=== PATIENT | female | born 1980 | race Caucasian/White ===

== ENCOUNTER 2021-09-05 12:17 | Emergency (ER) | payer OTHER ==
[~2021-09-05] VITALS: Ht 165.1 cm; Wt 68.0 kg
[~2021-09-05 12:17] MED LIST: AMIT50TA17 PO; CLON0.2T12 PO
[2021-09-05 13:02] LABS: HEMATOCRIT 36.9 % (31.2-41.9); MEAN CORPUSCULAR HEMOGLOBIN 24.7 uug (24.7-32.8); MEAN CORPUSCULAR VOLUME 75.8 fL (75.5-95.3); PLATELET COUNT (AUTO) 137 K/uL (179-408)
[2021-09-05 13:03] LABS: *BILIRUBIN,URIN NEGATIVE (NEGATIVE); *BLOOD, URINE NEGATIVE (NEGATIVE); *CLARITY,URINE CLEAR (CLEAR); *COLOR,URINE YELLOW (YELLOW); *KETONES,URINE NEGATIVE (NEGATIVE); *UROBILINOGEN,URINE 0.2 E.U./dl (NORMAL); LEUKOCYTE ESTERASE ,URINE NEGATIVE (NEGATIVE); NITRITE, URINE NEGATIVE (NEGATIVE); UGLUCOSE NEGATIVE (NEGATIVE)
[2021-09-05 13:05] LABS: CREATININE 0.7 mg/dL (0.6-1.3); POTASSIUM 3.7 mmol/L (3.5-5.1)
[2021-09-05 13:10] LABS: BILIRUBIN,DIRECT 0.2 mg/dL (0.0-0.2); BILIRUBIN,TOTAL 0.5 mg/dL (0.2-1.0); TOTAL PROTEIN, SERUM 7.3 g/dL (6.4-8.2)
[2021-09-05 13:11] LABS: *URINE HCG, QUAL NEG (NEGATIVE)
[2021-09-05] MEDS ORDERED: HYDROMORPHONE 1 MG/1 ML DISP.SYRIN IV ONE ×2 (13:15→14:00)
[2021-09-05] MEDS ORDERED: diphenhydrAMINE 50 MG/1 ML VIAL IV ONE (13:15)
--- NOTE | 2021-09-05 13:15 | NUR ---
Crista Cath to right subclavian area accessed with 19ga Triana needle per hospital protocol. Good blood return, able to flush without complications.
[2021-09-05] MEDS ORDERED: diphenhydrAMINE 50 MG/1 ML VIAL ONE (13:22)
[2021-09-05] MEDS ORDERED: HYDROMORPHONE 1 MG/1 ML DISP.SYRIN ONE ×2 (13:23→14:17)
[2021-09-05] MEDS ORDERED: IV NORMAL SALINE 500 ML BAG IV STA (13:27)
[2021-09-05] MEDS ORDERED: IV NORMAL SALINE 1000 ML BAG IV ONE (13:45)
--- NOTE | 2021-09-05 14:19 | NUR ---
2nd liter NS duplicate order
== END 2021-09-05 18:00 | disposition left against medical advice (07) ==
LOC: ER 12:22
DX: R10.9 Unspecified abdominal pain (principal); R10.13 Epigastric pain; B17.9 Acute viral hepatitis, unspecified; Z53.29 Procedure and treatment not carried out because of patient's decision for other reasons; Z20.822 Contact with and (suspected) exposure to COVID-19; Z90.49 Acquired absence of other specified parts of digestive tract; Z88.8 Allergy status to other drugs, medicaments and biological substances; Z91.018 Allergy to other foods; K50.90 Crohn's disease, unspecified, without complications
CPT/HCPCS: 36415; 74176; 76700; 80048; 80076; 81003; 83690; 84703; 85025; 87086; 87426; 96374; 96375; 96376; 99285; J1170 ×2; J1200; A4663; J7030

== ENCOUNTER 2022-03-15 19:54 | Emergency (ER) | payer OTHER ==
[~2022-03-15] VITALS: Ht 165.1 cm; Wt 63.5 kg
--- NOTE | 2022-03-15 21:02 | NUR ---
Patientis a/ox4, NAD noted, denies SOB. Patient is able to walk with steady gait.
--- NOTE | 2022-03-15 21:03 | NUR ---
Dr Em in room for [facility]
[2022-03-15] MEDS ORDERED: CEFTRIAXONE /D5W 50ML IVPB **ER PYXIS IV ONE (21:15)
[2022-03-15] MEDS ORDERED: diphenhydrAMINE 50 MG/1 ML VIAL ONE (21:15)
[2022-03-15] MEDS ORDERED: CEFTRIAXONE 1 G in IV DEXTROSE 5% 50 ML IV ONE (21:15)
[2022-03-15] MEDS ORDERED: VANCOMYCIN IV 200 ML ONE (21:15)
[2022-03-15] MEDS ORDERED: VANCOMYCIN IV 1,000 MG in IV DEXTROSE 5% 250 ML IV ONE (21:15)
[2022-03-15] MEDS ORDERED: diphenhydrAMINE 50 MG/1 ML VIAL IV ONE (21:15)
[2022-03-15] MEDS ORDERED: SULF1TAB48 PO (21:25)
[2022-03-15] MEDS ORDERED: CEPH500T PO (21:25)
[2022-03-15 21:47] LABS: HEMATOCRIT 37.6 % (31.2-41.9); MEAN CORPUSCULAR HEMOGLOBIN 27.7 uug (24.7-32.8); PLATELET COUNT (AUTO) 118 K/uL (179-408)
[2022-03-15 21:57] LABS: CREATININE 0.8 mg/dL (0.6-1.3); POTASSIUM 4.5 mmol/L (3.5-5.1)
[2022-03-15 22:03] LABS: BILIRUBIN,DIRECT 0.1 mg/dL (0.0-0.2); BILIRUBIN,TOTAL 0.2 mg/dL (0.2-1.0); TOTAL PROTEIN, SERUM 7.4 g/dL (6.4-8.2)
[2022-03-15] MEDS ORDERED: HYDROMORPHONE 1 MG/1 ML DISP.SYRIN IV ONE (22:30)
[2022-03-15] MEDS ORDERED: HYDROMORPHONE 1 MG/1 ML DISP.SYRIN ONE (22:44)
--- NOTE | 2022-03-15 23:47 | NUR ---
Patient discharged to home in stable condition. Written and verbal after care instructions given. Patient verbalizes understanding of instructions. Stressed follow up or return to ER for worsening s/s. Patients is a/ox4, NAD noted. Patient is able to walk with steady gait.
[2022-03-15 23:48] VITALS: BP 119/79
== END 2022-03-15 23:49 | disposition home or self-care (01) ==
LOC: ER 20:16
DX: L03.311 Cellulitis of abdominal wall (principal); K50.90 Crohn's disease, unspecified, without complications; Z90.49 Acquired absence of other specified parts of digestive tract; Z90.710 Acquired absence of both cervix and uterus; R11.0 Nausea; G89.29 Other chronic pain
CPT/HCPCS: 36415; 80048; 80076; 83690; 85025; 87040 ×2; 96365; 96366; 96367; 96375; 99284; J0696; J1170; J1200; J3370; A4663

== ENCOUNTER 2022-03-30 23:55 | Emergency (ER) | payer OTHER ==
[~2022-03-30] VITALS: Ht 165.1 cm; Wt 65.8 kg
[~2022-03-30 23:55] MED LIST changes: +CEPH500T PO; +SULF1TAB48 PO
--- NOTE | 2022-03-31 00:53 | NUR ---
Dr Em at bedside, MSE in progress.
[2022-03-31] MEDS ORDERED: IBUPROFEN 800 MG TABLET PO ONE (01:00)
[2022-03-31] MEDS ORDERED: CYCLOBENZAPRINE HCL 10 MG TABLET PO ONE (01:00)
[2022-03-31] MEDS ORDERED: IBUPROFEN 800 MG TABLET ONE (01:02)
[2022-03-31] MEDS ORDERED: CYCLOBENZAPRINE HCL 10 MG TABLET ONE (01:03)
[2022-03-31] MEDS ORDERED: IBUP-1955 PO (01:52)
[2022-03-31] MEDS ORDERED: CYCL10TA9 PO (01:53)
[2022-03-31 02:16] VITALS: BP 124/76
--- NOTE | 2022-03-31 02:16 | NUR ---
Patient discharged to home in stable condition. Written and verbal after care instructions given. Patient verbalizes understanding of instructions. Stressed follow up or return to ER for worsening s/s. pt ambulated with steady gait. AOx4. Thumb spica applied to left arm
== END 2022-03-31 02:17 | disposition home or self-care (01) ==
LOC: ER 23:57
DX: M79.642 Pain in left hand (principal); M25.512 Pain in left shoulder; K50.90 Crohn's disease, unspecified, without complications; Z90.49 Acquired absence of other specified parts of digestive tract
CPT/HCPCS: 73030; 73130; A4663

== ENCOUNTER 2022-09-25 21:57 | Emergency (ER) | payer OTHER ==
[~2022-09-25] VITALS: Ht 165.1 cm; Wt 65.8 kg
[~2022-09-25 21:57] MED LIST changes: +CYCL10TA9 PO; +IBUP-1955 PO
[2022-09-25] MEDS ORDERED: SULF1TAB48 PO (23:54)
[2022-09-25] MEDS ORDERED: CEPH500T PO (23:54)
[2022-09-25] MEDS ORDERED: CEFTRIAXONE 1 G VIAL ONE (23:56)
[2022-09-25] MEDS ORDERED: LIDOCAINE HCL 2% 20 ML VIAL ONE (23:56)
[2022-09-25] MEDS ORDERED: SULFAMETH/TRIMETH 800/160 MG TABLET ONE (23:57)
[2022-09-26] MEDS ORDERED: CEFTRIAXONE 1 G VIAL IM ONE
[2022-09-26] MEDS ORDERED: LIDOCAINE HCL 1% 20 ML VIAL ONE (00:02)
[2022-09-26] MEDS: SULFAMETH/TRIMETH 800/160 MG TABLET PO ONE ×2 (00:10→00:32)
--- NOTE | 2022-09-26 00:26 | NUR ---
Patient discharged to home in stable condition. Written and verbal after care instructions given. Patient verbalizes understanding of instructions. Stressed follow up or return to ER for worsening s/s. Patient walked out wiht steady gait.
[2022-09-26 00:37] VITALS: BP 119/79
== END 2022-09-26 00:27 | disposition home or self-care (01) ==
LOC: ER 21:57
DX: L03.115 Cellulitis of right lower limb (principal); Z90.49 Acquired absence of other specified parts of digestive tract; Z90.710 Acquired absence of both cervix and uterus; K50.90 Crohn's disease, unspecified, without complications; Z88.8 Allergy status to other drugs, medicaments and biological substances; Z91.018 Allergy to other foods
CPT/HCPCS: 99283; 96372; J0696; J3490; A4663

== ENCOUNTER 2022-09-29 16:56 | Emergency (ER) | payer OTHER ==
[~2022-09-29] VITALS: Ht 165.1 cm; Wt 65.8 kg
== END 2022-09-29 18:28 | disposition left against medical advice (07) ==
LOC: ER 16:59
DX: Z53.21 Procedure and treatment not carried out due to patient leaving prior to being seen by health care provider (principal)

== ENCOUNTER 2023-02-05 16:57 | Emergency (ER) | payer OTHER ==
[~2023-02-05] VITALS: Ht 165.1 cm; Wt 59.9 kg
[2023-02-05] MEDS ORDERED: PIPERACILLIN SODIUM/TAZOBACTAM 3.375 G in IV DEXTROSE 5% 50 ML IV ONE (17:45)
[2023-02-05] MEDS ORDERED: VANCOMYCIN IV 1,000 MG in IV DEXTROSE 5% 250 ML IV ONE (17:45)
[2023-02-05] MEDS ORDERED: HYDROMORPHONE 1 MG/1 ML DISP.SYRIN IV ONE ×3 (17:45→23:30)
[2023-02-05] MEDS ORDERED: ONDANSETRON 4 MG/2 ML VIAL IV ONE (17:45)
[2023-02-05] MEDS ORDERED: IV NORMAL SALINE 1000 ML BAG IV ONE (17:45)
--- NOTE | 2023-02-05 18:05 | NUR ---
Attempted to access pt's port a cath, unable to and pt c/o pain at the site. DR Em notified.
[2023-02-05] MEDS ORDERED: IV NORMAL SALINE 250 ML IV ONE (18:28)
[2023-02-05] MEDS ORDERED: IOHEXOL 300MG/ML 100 ML INFUS..BTL ONE (18:28)
[2023-02-05] MEDS ORDERED: SWABABLE VALVE TRANSFER SET EA MC ONE (18:28)
[2023-02-05] MEDS ORDERED: ONDANSETRON 4 MG/2 ML VIAL ONE (19:29)
[2023-02-05] MEDS ORDERED: HYDROMORPHONE 1 MG/1 ML DISP.SYRIN ONE ×2 (19:29→20:49)
[2023-02-05] MEDS ORDERED: PIPERACILLIN/TAZOBACTAM/D5W 50 ML IV ONE (19:29)
[2023-02-05 19:49] LABS: HEMATOCRIT 34.1 % (31.2-41.9); MEAN CORPUSCULAR HEMOGLOBIN 22.8 uug (24.7-32.8); PLATELET COUNT (AUTO) 207 K/uL (179-408)
[2023-02-05] MEDS ORDERED: diphenhydrAMINE 50 MG/1 ML VIAL IV ONE (20:00)
[2023-02-05 20:07] LABS: CARBON DIOXIDE 24 mmol/L (21-32); CHLORIDE 98 mmol/L (98-107); CREATININE 0.6 mg/dL (0.6-1.3); POTASSIUM 3.8 mmol/L (3.5-5.1); UREA NITROGEN, BLOOD 18 mg/dL (7-18)
[2023-02-05 20:09] LABS: GLUCOSE 318 mg/dL (74-106)
[2023-02-05 20:15] LABS: ALANINE AMINOTRANSFERASE 26 U/L (14-59); ALKALINE PHOSPHATASE 139 U/L (50-136); ASPARTATE AMINOTRANSFERASE 11 U/L (15-37); BILIRUBIN,DIRECT 0.1 mg/dL (0.0-0.2); BILIRUBIN,TOTAL 0.2 mg/dL (0.2-1.0); TOTAL PROTEIN, SERUM 7.4 g/dL (6.4-8.2)
[2023-02-05] MEDS ORDERED: VANCOMYCIN IV 200 ML ONE (20:48)
[2023-02-05] MEDS ORDERED: diphenhydrAMINE 50 MG/1 ML VIAL ONE (20:49)
--- NOTE | 2023-02-05 23:06 | NUR ---
[facility]ran[facility] called- spoke to Danisha Han and stated that patient will arrive at ER when transferred. was given call back number for report .
--- NOTE | 2023-02-05 23:39 | NUR ---
Called [facility] for transport. Stated that ETA is 45 min.
[2023-02-06] MEDS ORDERED: HYDROMORPHONE 1 MG/1 ML DISP.SYRIN ONE (00:15)
--- NOTE | 2023-02-06 00:35 | NUR ---
[facility] unit [id number] arrived to picker and packer patient.
--- NOTE | 2023-02-06 00:35 | NUR ---
Called [facility] and gave report to Esperanza MICHELLE.
[2023-02-06] MEDS ORDERED: diphenhydrAMINE 50 MG/1 ML VIAL IV ONE (00:45)
[2023-02-06] MEDS ORDERED: diphenhydrAMINE 50 MG/1 ML VIAL ONE (00:45)
== END 2023-02-06 01:25 | disposition short-term general hospital (02) ==
LOC: ER 17:00
DX: N76.4 Abscess of vulva (principal); N76.2 Acute vulvitis; R00.0 Tachycardia, unspecified; Z90.710 Acquired absence of both cervix and uterus; Z79.899 Other long term (current) drug therapy; Z79.2 Long term (current) use of antibiotics; Z88.8 Allergy status to other drugs, medicaments and biological substances; Z20.822 Contact with and (suspected) exposure to COVID-19
CPT/HCPCS: 36415; 71045; 83605; 84484; 85025; 85730; 87040; 93005; A4663; J1170; J1200; J2405; J2543; J3370; J7040; Q9967

== ENCOUNTER 2023-05-29 20:09 | Inpatient (IN) | payer OTHER ==
[~2023-05-29] VITALS: Ht 165.1 cm; Wt 73.5 kg
[~2023-05-29 20:09] MED LIST changes: +HYDR-3980 PO; +LIDO30AD10 TP
[2023-05-29] MEDS ORDERED: MORPHINE SULFATE 2 MG/1 ML DISP.SYRIN IV ONE (21:15)
[2023-05-29] MEDS ORDERED: IV NORMAL SALINE 1000 ML BAG IV ONE (21:15)
[2023-05-29] MEDS ORDERED: MORPHINE SULFATE 2 MG/1 ML DISP.SYRIN ONE ×2 (21:23→23:28)
[2023-05-29] MEDS ORDERED: diphenhydrAMINE 50 MG/1 ML VIAL ONE (21:27)
[2023-05-29] MEDS ORDERED: diphenhydrAMINE 50 MG/1 ML VIAL IV ONE (21:30)
[2023-05-29 21:53] LABS: LYMPHOCYTES # (AUTO) 0.9 K/uL (0.8-4.8); MONOCYTES # (AUTO) 0.3 K/uL (0.1-1.30)
[2023-05-29 21:55] LABS: BASOPHILS % (AUTO) 0.4 % (0.0-2.0); EOSINOPHILS % (AUTO) 0.5 % (0.0-7.0); LYMPHOCYTES % (AUTO) 17.6 % (20.5-51.5); MEAN CORPUSCULAR HEMOGLOBIN 19.6 uug (24.7-32.8); MEAN CORPUSCULAR HGB CONC 30 g/dL (32.3-35.6); MEAN CORPUSCULAR VOLUME 66.1 fL (75.5-95.3); NEUTROPHILS % (AUTO) 75.5 % (38.5-71.5); PLATELET COUNT (AUTO) 126 K/uL (179-408); RED BLOOD CELL COUNT(AUTO) 2.66 MIL/uL (3.63-4.92); RED CELL DISTRIBUTION WIDTH 17.6 % (12.3-17.7); WHITE BLOOD COUNT (AUTO) 5.3 K/uL (3.8-11.8)
[2023-05-29 22:00] LABS: HEMOGLOBIN 5.2 g/dL (10.9-14.3)
[2023-05-29 22:01] LABS: DIFFERENTIAL COMMENT 1; HEMATOCRIT 17.5 % (31.2-41.9)
[2023-05-29 22:10] LABS: ALANINE AMINOTRANSFERASE 35 U/L (14-59); ALBUMIN 2.8 g/dL (3.4-5.0); ALKALINE PHOSPHATASE 150 U/L (50-136); ASPARTATE AMINOTRANSFERASE 18 U/L (15-37); BILIRUBIN,DIRECT 0.1 mg/dL (0.0-0.2); BILIRUBIN,TOTAL 0.3 mg/dL (0.2-1.0); CALCIUM 7.5 mg/dL (8.5-10.1); CARBON DIOXIDE 21 mmol/L (21-32); CHLORIDE 100 mmol/L (98-107); CREATININE 0.6 mg/dL (0.6-1.3); GLUCOSE 369 mg/dL (74-106); POTASSIUM 3.9 mmol/L (3.5-5.1); SODIUM SERUM 132 mmol/L (136-145); TOTAL PROTEIN, SERUM 6.3 g/dL (6.4-8.2); UREA NITROGEN, BLOOD 13 mg/dL (7-18)
[2023-05-29 22:37] LABS: BASOPHILS % (AUTO) 0.9 % (0.0-2.0); EOSINOPHILS % (AUTO) 0.2 % (0.0-7.0); LYMPHOCYTES # (AUTO) 0.8 K/uL (0.8-4.8); LYMPHOCYTES % (AUTO) 18.7 % (20.5-51.5); MEAN CORPUSCULAR HEMOGLOBIN 19.4 uug (24.7-32.8); MEAN CORPUSCULAR HGB CONC 29 g/dL (32.3-35.6); MEAN CORPUSCULAR VOLUME 66.8 fL (75.5-95.3); MONOCYTES # (AUTO) 0.2 K/uL (0.1-1.30); MONOCYTES % (AUTO) 5.4 % (0.0-11.0); NEUTROPHILS # (AUTO) 3.3 K/uL (1.8-8.9); NEUTROPHILS % (AUTO) 74.8 % (38.5-71.5); PLATELET COUNT (AUTO) 129 K/uL (179-408); RED BLOOD CELL COUNT(AUTO) 2.55 MIL/uL (3.63-4.92); RED CELL DISTRIBUTION WIDTH 17.7 % (12.3-17.7); WHITE BLOOD COUNT (AUTO) 4.4 K/uL (3.8-11.8)
[2023-05-29 22:51] LABS: LIPASE 134 U/L (73-393)
[2023-05-29 23:21] LABS: DIFFERENTIAL COMMENT 1; HEMOGLOBIN 4.9 g/dL (10.9-14.3)
[2023-05-30] MEDS ORDERED: MORPHINE SULFATE 4 MG/1 ML DISP.SYRIN IV ONE (00:15)
[2023-05-30] MEDS ORDERED: MORPHINE SULFATE 2 MG/1 ML DISP.SYRIN IV ONE (00:15)
[2023-05-30] MEDS ORDERED: MORPHINE SULFATE 2 MG/1 ML DISP.SYRIN ONE (00:23)
[2023-05-30] MEDS ORDERED: HYDROMORPHONE 2 MG/1 ML DISP.SYRIN ONE (02:47)
[2023-05-30] MEDS ORDERED: diphenhydrAMINE 50 MG/1 ML VIAL ONE ×3 (03:01→09:58)
[2023-05-30] MEDS ORDERED: HYDROMORPHONE 1 MG/1 ML DISP.SYRIN IV ONE ×3 (03:15→10:00)
[2023-05-30] MEDS ORDERED: diphenhydrAMINE 50 MG/1 ML VIAL IV ONE ×3 (03:15→10:00)
[2023-05-30] MEDS ORDERED: HYDROMORPHONE 1 MG/1 ML DISP.SYRIN ONE ×2 (06:29→09:58)
[2023-05-30 11:30] VITALS: BP 143/82; TEMP 98.4; O2SAT 99
[2023-05-30] MEDS: HYDROMORPHONE 1 MG/1 ML DISP.SYRIN IV PRN ×3 (14:19→22:10)
[2023-05-30] MEDS: diphenhydrAMINE 50 MG/1 ML VIAL IV PRN ×2 (14:19→18:14)
[2023-05-30] MEDS ORDERED: ONDANSETRON 4 MG/2 ML VIAL IV PRN (14:45)
[2023-05-30] MEDS ORDERED: ACETAMINOPHEN 325 MG TABLET PO PRN (14:45)
[2023-05-30] MEDS ORDERED: AMIT25TA9 PO (14:46)
[2023-05-30 14:54] LABS: IRON, SERUM 8 ug/dL (50-175)
[2023-05-30] MEDS ORDERED: DOXY100C5 PO (15:12)
[2023-05-30] MEDS ORDERED: PANT40TA2 PO (15:12)
[2023-05-30] MEDS: PANTOPRAZOLE SODIUM 40 MG VIAL IV SCH (15:46)
[2023-05-30] MEDS ORDERED: INSU100V7 SQ (15:51)
[2023-05-30 16:00] VITALS: BP 133/75; TEMP 98.6; O2SAT 99
[2023-05-30 19:49] LABS: BASOPHILS % (AUTO) 0.5 % (0.0-2.0); EOSINOPHILS % (AUTO) 0.3 % (0.0-7.0); LYMPHOCYTES # (AUTO) 0.8 K/uL (0.8-4.8); LYMPHOCYTES % (AUTO) 19.7 % (20.5-51.5); MEAN CORPUSCULAR HEMOGLOBIN 20.2 uug (24.7-32.8); MEAN CORPUSCULAR HGB CONC 29 g/dL (32.3-35.6); MONOCYTES # (AUTO) 0.3 K/uL (0.1-1.30); MONOCYTES % (AUTO) 6.8 % (0.0-11.0); NEUTROPHILS % (AUTO) 72.7 % (38.5-71.5); PLATELET COUNT (AUTO) 116 K/uL (179-408); RED BLOOD CELL COUNT(AUTO) 2.87 MIL/uL (3.63-4.92); RED CELL DISTRIBUTION WIDTH 18.8 % (12.3-17.7); WHITE BLOOD COUNT (AUTO) 4.2 K/uL (3.8-11.8)
[2023-05-30 20:00] VITALS: BP 101/70; TEMP 98.3; O2SAT 94
[2023-05-30 20:15] LABS: DIFFERENTIAL COMMENT 1; HEMATOCRIT 19.8 % (31.2-41.9); HEMOGLOBIN 5.8 g/dL (10.9-14.3)
[2023-05-30] MEDS ORDERED: DEXTROSE 50% 50 ML DISP.SYRIN IV PRN (21:45)
[2023-05-30] MEDS: BLOOD SUGAR DIAGNOSTIC 1 EACH STRIP VI SCH (22:19)
[2023-05-30] MEDS: INSULIN GLARGINE,HUM 300 UNITS/3 ML CARTRIDGE SQ SCH (22:20)
[2023-05-30] MEDS: INSULIN REGULAR, HUMAN 300 UNIT/3 ML VIAL SQ PRN (22:25)
[2023-05-31] VITALS (7 sets, daily range): BP systolic 121–148; BP diastolic 74–85; TEMP 98.4–98.9; O2SAT 96–100
[2023-05-31] MEDS: TEMAZEPAM 15 MG CAPSULE PO PRN (00:33)
[2023-05-31] MEDS: diphenhydrAMINE 50 MG/1 ML VIAL IV PRN ×4 (00:33→20:10)
[2023-05-31] MEDS: HYDROMORPHONE 1 MG/1 ML DISP.SYRIN IV PRN ×5 (03:02→23:27)
[2023-05-31] MEDS: BLOOD SUGAR DIAGNOSTIC 1 EACH STRIP VI SCH ×4 (07:07→20:19)
[2023-05-31] MEDS ORDERED: diphenhydrAMINE 50 MG/1 ML VIAL IV STA (07:13)
[2023-05-31] MEDS: PANTOPRAZOLE SODIUM 40 MG VIAL IV SCH (10:53)
[2023-05-31 12:49] LABS: ALANINE AMINOTRANSFERASE 52 U/L (14-59); ALBUMIN 2.5 g/dL (3.4-5.0); ALKALINE PHOSPHATASE 194 U/L (50-136); ASPARTATE AMINOTRANSFERASE 24 U/L (15-37); BILIRUBIN,TOTAL 0.6 mg/dL (0.2-1.0); CALCIUM 7.4 mg/dL (8.5-10.1); CARBON DIOXIDE 25 mmol/L (21-32); CHLORIDE 102 mmol/L (98-107); CHOLESTEROL 73 mg/dL (<200); CREATININE 0.4 mg/dL (0.6-1.3); GLUCOSE 131 mg/dL (74-106); HDL CHOLESTEROL 37 mg/dL (40-60); MAGNESIUM 1.7 mg/dL (1.8-2.4); PHOSPHOROUS 2.5 mg/dL (2.5-4.9); POTASSIUM 3.2 mmol/L (3.5-5.1); SODIUM SERUM 136 mmol/L (136-145); TOTAL PROTEIN, SERUM 5.8 g/dL (6.4-8.2); TRIGLYCERIDES 58 MG/DL (30-150); UREA NITROGEN, BLOOD 9 mg/dL (7-18)
[2023-05-31 12:50] LABS: LIPASE < 10 U/L (73-393)
[2023-05-31 12:51] LABS: BASOPHILS % (AUTO) 0.6 % (0.0-2.0); DIFFERENTIAL COMMENT 0; HEMATOCRIT 23.1 % (31.2-41.9); MEAN CORPUSCULAR HEMOGLOBIN 21.1 uug (24.7-32.8); MEAN CORPUSCULAR HGB CONC 30 g/dL (32.3-35.6); MONOCYTES # (AUTO) 0.3 K/uL (0.1-1.30); MONOCYTES % (AUTO) 7.5 % (0.0-11.0); NEUTROPHILS # (AUTO) 2.9 K/uL (1.8-8.9); NEUTROPHILS % (AUTO) 66.9 % (38.5-71.5); PLATELET COUNT (AUTO) 136 K/uL (179-408); WHITE BLOOD COUNT (AUTO) 4.3 K/uL (3.8-11.8)
[2023-05-31 13:03] LABS: HEMOGLOBIN 6.9 g/dL (10.9-14.3)
[2023-05-31 13:14] LABS: C-REACTIVE PROTEIN 3.1 mg/dL (0.0-0.9)
[2023-05-31 13:46] LABS: THYROID STIMULATING HORMONE 0.098 mIU/mL (0.358-3.740)
[2023-05-31] MEDS ORDERED: FUROSEMIDE 20 MG/2 ML VIAL IV PRN (14:00)
[2023-05-31] MEDS ORDERED: POTASSIUM CHLORIDE 20 MEQ TAB.PRT.SR PO ONE (14:00)
[2023-05-31] MEDS ORDERED: MAGNESIUM SULFATE/D5W 100 ML IV SCH (14:00)
[2023-05-31 14:12] LABS: ERYTHROCYTE SEDIMENTATION RATE 20 MM/HR (0-20)
[2023-05-31] MEDS: POTASSIUM CHLORIDE 50 ML IV SCH ×2 (16:21→18:05)
[2023-05-31] MEDS: INSULIN GLARGINE,HUM 300 UNITS/3 ML CARTRIDGE SQ SCH (20:21)
[2023-05-31] MEDS: INSULIN REGULAR, HUMAN 300 UNITS/3 ML VIAL SQ PRN (20:22)
[2023-06-01] VITALS (8 sets, daily range): BP systolic 129–139; BP diastolic 73–87; TEMP 97.5–98.7; O2SAT 96–100
[2023-06-01] MEDS: diphenhydrAMINE 50 MG/1 ML VIAL IV PRN ×3 (02:31→21:47)
[2023-06-01] MEDS: HYDROMORPHONE 1 MG/1 ML DISP.SYRIN IV PRN ×6 (02:32→21:47)
[2023-06-01] MEDS: BLOOD SUGAR DIAGNOSTIC 1 EACH STRIP VI SCH ×4 (06:51→20:40)
[2023-06-01] MEDS: PANTOPRAZOLE SODIUM 40 MG VIAL IV SCH (08:36)
[2023-06-01 11:08] LABS: BASOPHILS % (AUTO) 0.7 % (0.0-2.0); EOSINOPHILS # (AUTO) 0.1 K/uL (0.0-0.7); EOSINOPHILS % (AUTO) 2.7 % (0.0-7.0); HEMATOCRIT 26.9 % (31.2-41.9); HEMOGLOBIN 8.2 g/dL (10.9-14.3); LYMPHOCYTES % (AUTO) 26.3 % (20.5-51.5); MEAN CORPUSCULAR HEMOGLOBIN 21.7 uug (24.7-32.8); MEAN CORPUSCULAR HGB CONC 30 g/dL (32.3-35.6); MEAN CORPUSCULAR VOLUME 71.1 fL (75.5-95.3); MONOCYTES # (AUTO) 0.3 K/uL (0.1-1.30); MONOCYTES % (AUTO) 7.4 % (0.0-11.0); NEUTROPHILS # (AUTO) 2.5 K/uL (1.8-8.9); NEUTROPHILS % (AUTO) 62.9 % (38.5-71.5); PLATELET COUNT (AUTO) 114 K/uL (179-408); RED BLOOD CELL COUNT(AUTO) 3.78 MIL/uL (3.63-4.92)
[2023-06-01 11:10] LABS: DIFFERENTIAL COMMENT 1
[2023-06-01 11:41] LABS: CALCIUM 7.5 mg/dL (8.5-10.1); CARBON DIOXIDE 26 mmol/L (21-32); CHLORIDE 102 mmol/L (98-107); CREATININE 0.4 mg/dL (0.6-1.3); GLUCOSE 142 mg/dL (74-106); MAGNESIUM 1.7 mg/dL (1.8-2.4); POTASSIUM 3.5 mmol/L (3.5-5.1); SODIUM SERUM 134 mmol/L (136-145); UREA NITROGEN, BLOOD 6 mg/dL (7-18)
[2023-06-01] MEDS: INSULIN REGULAR, HUMAN 300 UNIT/3 ML VIAL SQ PRN ×2 (11:48→16:44)
[2023-06-01 12:09] LABS: THYROID STIMULATING HORMONE 0.068 mIU/mL (0.358-3.740)
[2023-06-01] MEDS ORDERED: DIATR MEGLU/DIATRIZOATE SODIUM 30 ML BOTTLE ONE (12:30)
[2023-06-01] MEDS ORDERED: LORAZEPAM 2 MG/1 ML VIAL IV ONE (15:45)
[2023-06-01] MEDS: INSULIN REGULAR, HUMAN 300 UNITS/3 ML VIAL SQ PRN (20:42)
[2023-06-01] MEDS: INSULIN GLARGINE,HUM 300 UNITS/3 ML CARTRIDGE SQ SCH (20:43)
[2023-06-02 04:00] VITALS: BP 140/87; TEMP 98.5; O2SAT 96
[2023-06-02] MEDS: HYDROMORPHONE 1 MG/1 ML DISP.SYRIN IV PRN ×6 (06:48→23:27)
[2023-06-02] MEDS: BLOOD SUGAR DIAGNOSTIC 1 EACH STRIP VI SCH ×2 (06:55→11:45)
[2023-06-02] MEDS: PANTOPRAZOLE SODIUM 40 MG VIAL IV SCH (09:16)
[2023-06-02] MEDS: diphenhydrAMINE 50 MG/1 ML VIAL IV PRN ×3 (10:02→23:32)
[2023-06-02] MEDS: INSULIN REGULAR, HUMAN 300 UNIT/3 ML VIAL SQ PRN (11:44)
[2023-06-02] MEDS: levoFLOXacin 500 MG/D5W 500 MG in PREMIXED 1 EACH IV SCH (15:46)
[2023-06-02] MEDS: METRONIDAZOLE 500 MG/NS 100ML 500 MG in PREMIXED 1 EACH IV SCH ×2 (15:47→22:21)
[2023-06-02 16:00] VITALS: BP 130/84; TEMP 98.8; O2SAT 98
[2023-06-02 20:00] VITALS: BP 138/82; TEMP 98.9; O2SAT 100
[2023-06-02] MEDS: INSULIN GLARGINE,HUM 300 UNITS/3 ML CARTRIDGE SQ SCH (20:26)
[2023-06-03] MEDS: TEMAZEPAM 15 MG CAPSULE PO PRN (02:48)
[2023-06-03] MEDS: HYDROMORPHONE 1 MG/1 ML DISP.SYRIN IV PRN ×6 (02:55→22:48)
[2023-06-03 05:04] VITALS: BP 117/74; TEMP 98; O2SAT 99
[2023-06-03] MEDS: METRONIDAZOLE 500 MG/NS 100ML 500 MG in PREMIXED 1 EACH IV SCH ×3 (06:07→23:26)
[2023-06-03] MEDS: diphenhydrAMINE 50 MG/1 ML VIAL IV PRN ×5 (06:19→22:47)
[2023-06-03] MEDS: PANTOPRAZOLE SODIUM 40 MG VIAL IV SCH (09:16)
[2023-06-03 11:32] VITALS: BP 122/78; TEMP 98.4; O2SAT 99
[2023-06-03] MEDS ORDERED: LIDOCAINE HCL 1% 20 ML VIAL IJ ONE (14:30)
[2023-06-03] MEDS: levoFLOXacin 500 MG/D5W 500 MG in PREMIXED 1 EACH IV SCH (15:25)
[2023-06-03 15:55] VITALS: BP 123/80; TEMP 98; O2SAT 98
[2023-06-03] MEDS: MUPIROCIN 2% OINT 22 GM TUBE TP SCH ×2 (16:00→21:36)
[2023-06-03 20:20] VITALS: BP 126/85; TEMP 98.5; O2SAT 99
[2023-06-03] MEDS: INSULIN GLARGINE,HUM 300 UNITS/3 ML CARTRIDGE SQ SCH (21:24)
[2023-06-04] MEDS: HYDROMORPHONE 1 MG/1 ML DISP.SYRIN IV PRN ×5 (03:02→21:30)
[2023-06-04] MEDS: diphenhydrAMINE 50 MG/1 ML VIAL IV PRN ×4 (03:02→21:30)
[2023-06-04] MEDS: METRONIDAZOLE 500 MG/NS 100ML 500 MG in PREMIXED 1 EACH IV SCH ×3 (05:59→21:46)
[2023-06-04] MEDS: PANTOPRAZOLE SODIUM 40 MG VIAL IV SCH (08:48)
[2023-06-04 11:34] VITALS: BP 136/90; TEMP 98.6; O2SAT 99
[2023-06-04] MEDS: MUPIROCIN 2% OINT 22 GM TUBE TP SCH ×2 (11:35→21:23)
[2023-06-04] MEDS: levoFLOXacin 500 MG/D5W 500 MG in PREMIXED 1 EACH IV SCH (15:09)
[2023-06-04 15:49] VITALS: BP 138/78; TEMP 98.2; O2SAT 100
[2023-06-04] MEDS: PROTEIN SUPPLEMENT (PROSTAT) 30 ML LIQUID PO SCH (16:26)
[2023-06-04 20:06] VITALS: BP 126/80; TEMP 98.6; O2SAT 100
[2023-06-04] MEDS: INSULIN GLARGINE,HUM 300 UNITS/3 ML CARTRIDGE SQ SCH (21:20)
[2023-06-05] MEDS: HYDROMORPHONE 1 MG/1 ML DISP.SYRIN IV PRN ×4 (02:05→15:14)
[2023-06-05] MEDS: diphenhydrAMINE 50 MG/1 ML VIAL IV PRN ×4 (02:07→15:14)
[2023-06-05 04:04] VITALS: BP 121/80; TEMP 98.4; O2SAT 99
[2023-06-05] MEDS: METRONIDAZOLE 500 MG/NS 100ML 500 MG in PREMIXED 1 EACH IV SCH (06:44)
[2023-06-05 07:04] LABS: BASOPHILS % (AUTO) 0.7 % (0.0-2.0); EOSINOPHILS # (AUTO) 0.1 K/uL (0.0-0.7); EOSINOPHILS % (AUTO) 2.4 % (0.0-7.0); HEMATOCRIT 33.5 % (31.2-41.9); HEMOGLOBIN 10.2 g/dL (10.9-14.3); LYMPHOCYTES # (AUTO) 1.8 K/uL (0.8-4.8); LYMPHOCYTES % (AUTO) 28.8 % (20.5-51.5); MEAN CORPUSCULAR HEMOGLOBIN 21.4 uug (24.7-32.8); MEAN CORPUSCULAR HGB CONC 31 g/dL (32.3-35.6); MONOCYTES # (AUTO) 0.4 K/uL (0.1-1.30); MONOCYTES % (AUTO) 6.8 % (0.0-11.0); NEUTROPHILS # (AUTO) 3.8 K/uL (1.8-8.9); NEUTROPHILS % (AUTO) 61.3 % (38.5-71.5); PLATELET COUNT (AUTO) 141 K/uL (179-408); RED BLOOD CELL COUNT(AUTO) 4.78 MIL/uL (3.63-4.92); RED CELL DISTRIBUTION WIDTH 20.9 % (12.3-17.7); WHITE BLOOD COUNT (AUTO) 6.2 K/uL (3.8-11.8)
[2023-06-05 07:16] LABS: CALCIUM 8.6 mg/dL (8.5-10.1); CREATININE 0.6 mg/dL (0.6-1.3); POTASSIUM 4.1 mmol/L (3.5-5.1)
[2023-06-05 07:17] LABS: DIFFERENTIAL COMMENT 1
[2023-06-05] MEDS: PANTOPRAZOLE SODIUM 40 MG VIAL IV SCH (10:22)
[2023-06-05] MEDS: PROTEIN SUPPLEMENT (PROSTAT) 30 ML LIQUID PO SCH (10:22)
[2023-06-05] MEDS: MUPIROCIN 2% OINT 22 GM TUBE TP SCH (10:23)
[2023-06-05] MEDS ORDERED: LEVO500T90 PO (10:36)
[2023-06-05] MEDS ORDERED: METR500T PO (10:36)
[2023-06-05 12:05] VITALS: BP 118/77; TEMP 98.5; O2SAT 99
[2023-06-05] MEDS ORDERED: METRONIDAZOLE 500 MG TABLET PO SCH (14:00)
[2023-06-05] MEDS: levoFLOXacin 500 MG/D5W 500 MG in PREMIXED 1 EACH IV SCH (15:00)
[2023-06-05 16:00] VITALS: BP 136/81; TEMP 98.8; O2SAT 98
[2023-06-06] MEDS ORDERED: PANTOPRAZOLE SODIUM 40 MG TABLET.DR PO SCH (07:00)
== END 2023-06-05 17:10 | disposition home or self-care (01) | DRG 245 ==
LOC: ER 20:11 → MEDSURG3 05-30 10:40
PROVIDERS: ADMIT Internal Medicine; ATTEND Nurse Practitioner Acute Care
PROC: 30233P1 Transfusion of Nonautologous Frozen Red Cells into Peripheral Vein, Percutaneous Approach (ICD-10-PCS; principal; 2023-05-30)
PROC: 0JBN0ZZ Excision of Right Lower Leg Subcutaneous Tissue and Fascia, Open Approach (ICD-10-PCS; 2023-06-03)
PROC: 0JBQ0ZZ Excision of Right Foot Subcutaneous Tissue and Fascia, Open Approach (ICD-10-PCS; 2023-06-03)
DX: K50.912 Crohn's disease, unspecified, with intestinal obstruction (principal); E44.0 Moderate protein-calorie malnutrition; L97.319 Non-pressure chronic ulcer of right ankle with unspecified severity; K56.7 Ileus, unspecified; E11.621 Type 2 diabetes mellitus with foot ulcer; E87.1 Hypo-osmolality and hyponatremia; M32.9 Systemic lupus erythematosus, unspecified; L97.818 Non-pressure chronic ulcer of other part of right lower leg with other specified severity; E11.65 Type 2 diabetes mellitus with hyperglycemia; E66.9 Obesity, unspecified; F32.A Depression, unspecified; F41.9 Anxiety disorder, unspecified; I10 Essential (primary) hypertension; K21.9 Gastro-esophageal reflux disease without esophagitis; K86.1 Other chronic pancreatitis; Z90.49 Acquired absence of other specified parts of digestive tract; Z90.710 Acquired absence of both cervix and uterus; Z68.27 Body mass index [BMI] 27.0-27.9, adult; K52.9 Noninfective gastroenteritis and colitis, unspecified; Z79.4 Long term (current) use of insulin; R56.9 Unspecified convulsions; E04.2 Nontoxic multinodular goiter; D50.9 Iron deficiency anemia, unspecified
CPT/HCPCS: 36415; 71045; 74250; 83550; 83690; 83735; 84100; 84443; 84484; 85018; 85025; 85651; 86140; 86850; 86900; 86901; 86920; 93005; A4663; A6209; C9113; G0378; J1170; J1200; J1815; J1956; J2060; J2270; J3475; J3480; J3490; J7040; P9016; Q9963

== ENCOUNTER 2023-08-12 21:35 | Emergency (ER) | payer OTHER ==
[~2023-08-12] VITALS: Ht 165.1 cm; Wt 56.7 kg
[~2023-08-12 21:35] MED LIST changes: +AMIT25TA9 PO; -AMIT50TA17 PO; -CYCL10TA9 PO; -HYDR-3980 PO; +IBUP-1490 PO; -IBUP-1955 PO; +INSU100V7 SQ; -LIDO30AD10 TP; +PANT40TA2 PO; -SULF1TAB48 PO
[2023-08-12] MEDS ORDERED: diphenhydrAMINE 50 MG/1 ML VIAL IV ONE (22:15)
[2023-08-12] MEDS ORDERED: HYDROMORPHONE 1 MG/1 ML DISP.SYRIN IV ONE (22:15)
[2023-08-12] MEDS ORDERED: IV NORMAL SALINE 1000 ML BAG IV ONE (22:15)
[2023-08-12 22:31] LABS: *BILIRUBIN,URIN NEGATIVE (NEGATIVE); *COLOR,URINE YELLOW (YELLOW); *KETONES,URINE NEGATIVE (NEGATIVE); *PROTEIN,URINE NEGATIVE (NEGATIVE); *UROBILINOGEN,URINE 0.2 E.U./dl (NORMAL); LEUKOCYTE ESTERASE ,URINE NEGATIVE (NEGATIVE); NITRITE, URINE NEGATIVE (NEGATIVE); PH,URINE 6.5 (5.0-8.0)
[2023-08-12 22:34] LABS: *BLOOD, URINE NEGATIVE (NEGATIVE); UGLUCOSE 3+ (NEGATIVE)
[2023-08-12 22:35] LABS: *CLARITY,URINE CLEAR (CLEAR); BACTERIA,URINE NONE SEEN /HPF (NONE SEEN); RBC,URINE 0-3 /HPF (0-3); SQUAMOUS EPITHELIAL CELL,UR FEW /HPF (NONE SEEN); WBC,URINE 0-3 /HPF (0-3)
[2023-08-12] MEDS ORDERED: diphenhydrAMINE 50 MG/1 ML VIAL ONE (22:39)
[2023-08-12] MEDS ORDERED: HYDROMORPHONE 1 MG/1 ML DISP.SYRIN ONE (22:39)
[2023-08-12 22:47] LABS: BASOPHILS % (AUTO) 0.6 % (0.0-2.0); EOSINOPHILS % (AUTO) 0.4 % (0.0-7.0); HEMATOCRIT 29.4 % (31.2-41.9); HEMOGLOBIN 8.8 g/dL (10.9-14.3); LYMPHOCYTES # (AUTO) 1.8 K/uL (0.8-4.8); LYMPHOCYTES % (AUTO) 22.1 % (20.5-51.5); MEAN CORPUSCULAR HEMOGLOBIN 20.1 uug (24.7-32.8); MEAN CORPUSCULAR HGB CONC 30 g/dL (32.3-35.6); MEAN CORPUSCULAR VOLUME 67.4 fL (75.5-95.3); MONOCYTES # (AUTO) 0.4 K/uL (0.1-1.30); MONOCYTES % (AUTO) 5.2 % (0.0-11.0); NEUTROPHILS # (AUTO) 5.7 K/uL (1.8-8.9); NEUTROPHILS % (AUTO) 71.7 % (38.5-71.5); PLATELET COUNT (AUTO) 191 K/uL (179-408); RED BLOOD CELL COUNT(AUTO) 4.36 MIL/uL (3.63-4.92)
[2023-08-12 23:12] LABS: DIFFERENTIAL COMMENT 1
[2023-08-12 23:26] LABS: ALANINE AMINOTRANSFERASE 100 U/L (14-59); ALBUMIN 2.8 g/dL (3.4-5.0); ALKALINE PHOSPHATASE 297 U/L (50-136); ASPARTATE AMINOTRANSFERASE 20 U/L (15-37); BILIRUBIN,DIRECT 0.1 mg/dL (0.0-0.2); BILIRUBIN,TOTAL 0.3 mg/dL (0.2-1.0); CALCIUM 8.3 mg/dL (8.5-10.1); CARBON DIOXIDE 24 mmol/L (21-32); CHLORIDE 95 mmol/L (98-107); CREATININE 0.9 mg/dL (0.6-1.3); LIPASE 33 U/L (16-77); POTASSIUM 4.3 mmol/L (3.5-5.1); SODIUM SERUM 130 mmol/L (136-145); TOTAL PROTEIN, SERUM 6.5 g/dL (6.4-8.2); UREA NITROGEN, BLOOD 21 mg/dL (7-18)
[2023-08-12 23:29] LABS: GLUCOSE 478 mg/dL (74-106)
[2023-08-12] MEDS ORDERED: IV NS 1000 ML 1,000 ML IV ONE (23:30)
[2023-08-12] MEDS ORDERED: INSULIN REGULAR, HUMAN 300 UNIT/3 ML VIAL ONE (23:41)
[2023-08-12] MEDS ORDERED: INSULIN REGULAR, HUMAN 300 UNIT/3 ML VIAL IV ONE (23:45)
[2023-08-12 23:46] LABS: IRON, SERUM 12 ug/dL (50-175)
[2023-08-13] MEDS ORDERED: HYDROMORPHONE 2 MG/1 ML DISP.SYRIN ONE (00:07)
[2023-08-13] MEDS ORDERED: SULF1TAB48 PO (00:18)
[2023-08-13] MEDS: BLOOD SUGAR DIAGNOSTIC 1 EACH STRIP VI SCH ×2 (01:10→03:10)
[2023-08-13] MEDS ORDERED: MAGNESIUM HYDROXIDE 30 ML LIQUID UDC ONE (01:47)
[2023-08-13] MEDS ORDERED: diphenhydrAMINE 50 MG/1 ML VIAL IV ONE (02:00)
[2023-08-13] MEDS ORDERED: INSULIN REGULAR, HUMAN 300 UNIT/3 ML VIAL IV ONE (02:00)
[2023-08-13] MEDS ORDERED: MINERAL OIL FLEET ENEMA 133 ML BOTTLE RC ONE ×3 (02:00→06:15)
[2023-08-13] MEDS ORDERED: HYDROMORPHONE 1 MG/1 ML DISP.SYRIN IV ONE ×2 (02:00)
[2023-08-13] MEDS ORDERED: MAGNESIUM HYDROXIDE 30 ML LIQUID UDC PO ONE (02:00)
[2023-08-13] MEDS ORDERED: HYDROMORPHONE 1 MG/1 ML DISP.SYRIN ONE ×3 (02:02→06:20)
[2023-08-13] MEDS ORDERED: diphenhydrAMINE 50 MG/1 ML VIAL ONE (02:02)
[2023-08-13] MEDS ORDERED: IV NS 1000 ML 1,000 ML IV PRN (06:15)
[2023-08-13] MEDS ORDERED: INSULIN REGULAR, HUMAN 300 UNIT/3 ML VIAL SQ PRN (06:15)
[2023-08-13] MEDS ORDERED: DEXTROSE 50% 50 ML DISP.SYRIN IV PRN (06:15)
[2023-08-13] MEDS ORDERED: MAGNESIUM HYDROXIDE 30 ML LIQUID UDC PO PRN (06:15)
[2023-08-13] MEDS ORDERED: ACETAMINOPHEN 325 MG TABLET PO PRN (06:15)
[2023-08-13] MEDS ORDERED: LACTULOSE 20 G/30 ML LIQUID UDC PO ONE (06:15)
[2023-08-13] MEDS ORDERED: HYDROMORPHONE 1 MG/1 ML DISP.SYRIN IM ONE (06:15)
[2023-08-13 07:30] VITALS: O2SAT 99
[2023-08-13] MEDS ORDERED: BLOOD SUGAR DIAGNOSTIC 1 EACH STRIP VI SCH (07:30)
[2023-08-13 07:48] LABS: *URINE HCG, QUAL NEGATIVE (NEGATIVE)
== END 2023-08-13 10:19 | disposition left against medical advice (07) ==
LOC: ER 21:36
DX: D50.9 Iron deficiency anemia, unspecified (principal); K56.41 Fecal impaction; R10.13 Epigastric pain; E11.9 Type 2 diabetes mellitus without complications; Z90.49 Acquired absence of other specified parts of digestive tract; Z90.710 Acquired absence of both cervix and uterus; Z88.8 Allergy status to other drugs, medicaments and biological substances; Z79.2 Long term (current) use of antibiotics; Z79.899 Other long term (current) drug therapy
CPT/HCPCS: 99285; 96374; 96375 ×2; 96361; 80076; 80048; 81001; 84703; 83550; 83690; 85025; 85044; 84484; 36415 ×2; 93005; 74018; 83605 ×2; 96376; 96372; 84681; 82962 ×3; J1200 ×2; J1170 ×5; J1815; J7040 ×2; 70030-TC; A4606; A4663

== ENCOUNTER 2023-09-13 23:33 | Emergency (ER) | payer OTHER ==
[~2023-09-13] VITALS: Ht 165.1 cm; Wt 54.4 kg
[~2023-09-13 23:33] MED LIST changes: -AMIT25TA9 PO; -CEPH500T PO; -CLON0.2T12 PO; -IBUP-1490 PO; -INSU100V7 SQ; +SULF1TAB48 PO
[2023-09-14] MEDS ORDERED: predniSONE 20 MG TABLET PO ONE (00:15)
[2023-09-14] MEDS ORDERED: FAMOTIDINE 20 MG TABLET PO ONE (00:15)
[2023-09-14] MEDS ORDERED: diphenhydrAMINE 25 MG CAP PO ONE ×2 (00:15→00:16)
[2023-09-14] MEDS ORDERED: predniSONE 20 MG TABLET ONE (00:16)
[2023-09-14] MEDS ORDERED: FAMOTIDINE 20 MG TABLET ONE (00:16)
[2023-09-14] MEDS ORDERED: PRED20TA PO (01:22)
[2023-09-14 01:34] VITALS: BP 116/78; TEMP 98.5; O2SAT 100
== END 2023-09-14 01:34 | disposition home or self-care (01) ==
LOC: ER 23:35
DX: R11.0 Nausea (principal); T50.905A Adverse effect of unspecified drugs, medicaments and biological substances, initial encounter; Z90.710 Acquired absence of both cervix and uterus; Z90.49 Acquired absence of other specified parts of digestive tract; Z88.8 Allergy status to other drugs, medicaments and biological substances; Z79.899 Other long term (current) drug therapy; Y92.89 Other specified places as the place of occurrence of the external cause
CPT/HCPCS: 99284; Q0163; J7512; A4606; A4663

== ENCOUNTER 2023-10-19 06:54 | Emergency (ER) | payer OTHER ==
[~2023-10-19] VITALS: Ht 165.1 cm; Wt 52.2 kg
[~2023-10-19 06:54] MED LIST changes: +PRED20TA PO
[2023-10-19] MEDS ORDERED: diphenhydrAMINE 50 MG/1 ML VIAL IV ONE (07:30)
[2023-10-19] MEDS ORDERED: IV NORMAL SALINE 1000 ML BAG IV ONE (07:30)
[2023-10-19] MEDS ORDERED: MORPHINE SULFATE 4 MG/1 ML DISP.SYRIN IV ONE ×2 (07:30→09:45)
[2023-10-19] MEDS ORDERED: MORPHINE SULFATE 4 MG/1 ML DISP.SYRIN ONE ×2 (07:33→09:34)
[2023-10-19] MEDS ORDERED: diphenhydrAMINE 50 MG/1 ML VIAL ONE (07:33)
[2023-10-19 08:17] LABS: BASOPHILS % (AUTO) 0.1 % (0.0-2.0); EOSINOPHILS # (AUTO) 0.2 K/uL (0.0-0.7); EOSINOPHILS % (AUTO) 1.8 % (0.0-7.0); HEMATOCRIT 31.3 % (31.2-41.9); HEMOGLOBIN 9.9 g/dL (10.9-14.3); LYMPHOCYTES % (AUTO) 22.3 % (20.5-51.5); MEAN CORPUSCULAR HGB CONC 32 g/dL (32.3-35.6); MONOCYTES # (AUTO) 0.5 K/uL (0.1-1.30); MONOCYTES % (AUTO) 6.1 % (0.0-11.0); NEUTROPHILS # (AUTO) 6.1 K/uL (1.8-8.9); NEUTROPHILS % (AUTO) 69.7 % (38.5-71.5); PLATELET COUNT (AUTO) 178 K/uL (179-408); RED BLOOD CELL COUNT(AUTO) 4.29 MIL/uL (3.63-4.92); RED CELL DISTRIBUTION WIDTH 24.3 % (12.3-17.7); WHITE BLOOD COUNT (AUTO) 8.8 K/uL (3.8-11.8)
[2023-10-19 08:27] LABS: DIFFERENTIAL COMMENT 1
[2023-10-19 08:30] LABS: CALCIUM 8.6 mg/dL (8.5-10.1); CARBON DIOXIDE 23 mmol/L (21-32); CHLORIDE 98 mmol/L (98-107); CREATININE 0.4 mg/dL (0.6-1.3); GLUCOSE 198 mg/dL (74-106); POTASSIUM 3.9 mmol/L (3.5-5.1); SODIUM SERUM 132 mmol/L (136-145); UREA NITROGEN, BLOOD 18 mg/dL (7-18)
[2023-10-19 08:36] LABS: ALANINE AMINOTRANSFERASE 75 U/L (14-59); ALBUMIN 2.9 g/dL (3.4-5.0); ALKALINE PHOSPHATASE 167 U/L (50-136); ASPARTATE AMINOTRANSFERASE 21 U/L (15-37); BILIRUBIN,DIRECT 0.1 mg/dL (0.0-0.2); BILIRUBIN,TOTAL 0.3 mg/dL (0.2-1.0); LIPASE 72 U/L (16-77); TOTAL PROTEIN, SERUM 6.8 g/dL (6.4-8.2)
[2023-10-19] MEDS ORDERED: IOHEXOL 300MG/ML 100 ML INFUS..BTL ONE (10:10)
[2023-10-19] MEDS ORDERED: IV NORMAL SALINE 250 ML IV ONE (10:10)
[2023-10-19] MEDS ORDERED: SWABABLE VALVE TRANSFER SET EA MC ONE (10:10)
[2023-10-19] MEDS ORDERED: DIATR MEGLU/DIATRIZOATE SODIUM 30 ML BOTTLE ONE (11:42)
[2023-10-19] MEDS ORDERED: HYDROMORPHONE 1 MG/1 ML DISP.SYRIN IV ONE (12:00)
[2023-10-19] MEDS ORDERED: HYDROMORPHONE 1 MG/1 ML DISP.SYRIN ONE (12:00)
[2023-10-19 13:33] LABS: *BILIRUBIN,URIN NEGATIVE (NEGATIVE); *CLARITY,URINE CLEAR (CLEAR); *COLOR,URINE YELLOW (YELLOW); *KETONES,URINE NEGATIVE (NEGATIVE); *PROTEIN,URINE NEGATIVE (NEGATIVE); *UROBILINOGEN,URINE 0.2 E.U./dl (NORMAL); LEUKOCYTE ESTERASE ,URINE TRACE (NEGATIVE); NITRITE, URINE NEGATIVE (NEGATIVE); PH,URINE 5.5 (5.0-8.0); UGLUCOSE NEGATIVE (NEGATIVE)
[2023-10-19 13:41] LABS: *BLOOD, URINE TRACE (NEGATIVE); *URINE HCG, QUAL NEGATIVE (NEGATIVE)
[2023-10-19 15:18] LABS: BACTERIA,URINE FEW /HPF (NONE SEEN); SQUAMOUS EPITHELIAL CELL,UR FEW /HPF (NONE SEEN)
[2023-10-19] MEDS ORDERED: LACT10SO58 PO (15:37)
[2023-10-19 16:00] VITALS: BP 106/71; O2SAT 97
== END 2023-10-19 16:02 | disposition home or self-care (01) ==
LOC: ER 06:56
DX: K59.03 Drug induced constipation (principal); R10.13 Epigastric pain; R10.2 Pelvic and perineal pain; Z79.899 Other long term (current) drug therapy; Z90.49 Acquired absence of other specified parts of digestive tract; Z88.1 Allergy status to other antibiotic agents
CPT/HCPCS: 99285; 74177 ×2; 96374; 96375; 96361; 80076; 80048; 81001; 84703; 83690; 85025; 36415; 93005; 96376; 87086; J1200; Q9967; J1170; J2270 ×2; J7040; A4606; Q9963

== ENCOUNTER 2024-02-14 17:44 | Emergency (ER) | payer OTHER ==
[~2024-02-14] VITALS: Ht 165.1 cm; Wt 54.4 kg
[~2024-02-14 17:44] MED LIST changes: +LACT10SO58 PO
[2024-02-14] MEDS ORDERED: LORAZEPAM 0.5 MG TABLET ONE (18:38)
[2024-02-14] MEDS: LORAZEPAM 0.5 MG TABLET PO ONE (18:39)
[2024-02-14 18:51] LABS: BASOPHILS % (AUTO) 0.3 % (0.0-2.0); EOSINOPHILS # (AUTO) 0.1 K/uL (0.0-0.7); EOSINOPHILS % (AUTO) 1.4 % (0.0-7.0); HEMATOCRIT 40.6 % (31.2-41.9); HEMOGLOBIN 13.5 g/dL (10.9-14.3); LYMPHOCYTES # (AUTO) 1.6 K/uL (0.8-4.8); LYMPHOCYTES % (AUTO) 25.1 % (20.5-51.5); MEAN CORPUSCULAR HGB CONC 33 g/dL (32.3-35.6); MEAN CORPUSCULAR VOLUME 81.4 fL (75.5-95.3); MONOCYTES # (AUTO) 0.4 K/uL (0.1-1.30); MONOCYTES % (AUTO) 6.4 % (0.0-11.0); NEUTROPHILS # (AUTO) 4.4 K/uL (1.8-8.9); NEUTROPHILS % (AUTO) 66.8 % (38.5-71.5); PLATELET COUNT (AUTO) 121 K/uL (179-408); RED BLOOD CELL COUNT(AUTO) 4.98 MIL/uL (3.63-4.92); RED CELL DISTRIBUTION WIDTH 15.8 % (12.3-17.7); WHITE BLOOD COUNT (AUTO) 6.6 K/uL (3.8-11.8)
[2024-02-14 18:57] LABS: DIFFERENTIAL COMMENT 1
[2024-02-14 19:27] LABS: ALBUMIN 3.3 g/dL (3.4-5.0); BILIRUBIN,TOTAL 0.4 mg/dL (0.2-1.0); CALCIUM 8.1 mg/dL (8.5-10.1); CREATININE 0.8 mg/dL (0.6-1.3); POTASSIUM 4.1 mmol/L (3.5-5.1); TOTAL PROTEIN, SERUM 6.9 g/dL (6.4-8.2)
[2024-02-14 19:37] VITALS: BP 109/74; TEMP 97.9; O2SAT 98
== END 2024-02-14 19:37 | disposition home or self-care (01) ==
LOC: ER 17:49
DX: Z13.9 Encounter for screening, unspecified (principal); R00.0 Tachycardia, unspecified; Z90.49 Acquired absence of other specified parts of digestive tract; Z79.899 Other long term (current) drug therapy; Z88.5 Allergy status to narcotic agent
CPT/HCPCS: 36415; 83690; 85025; A4606; A4663